=== PATIENT | male | born 1975 | race African-American/Black ===

== ENCOUNTER 2016-08-26 02:56 | Emergency (ER) | payer OTHER ==
[~2016-08-26] VITALS: Ht 175.3 cm; Wt 88.5 kg
[2016-08-26 03:03] VITALS: Ht 175.3 cm; Wt 88.5 kg
--- NOTE | 2016-08-26 05:02 | ERA ---
ER Documentation Chief Complaint Date/Time DATE: 08/26/16 TIME: 05:[address], cough, pain& burning w/ coughing x 2 days, no fevers. HPI The patient is 41 years old female, presenting with sore throat, cough, subjective fever for 3 days. He denies facial pain, neck pain, chest pain, dyspnea, abdominal pain, vomiting, dysuria, diarrhea. He does smoke and drinks socially Past medical history/surgical history: None ROS All systems reviewed and are negative except as per history of present illness. Medications Home Meds Active Scripts Guaifenesin-Codeine Phosphate* (Robitussin* AC) 5 Ml Syrup, 10 ML PO Q6H Y for COUGH, #120 ML Prov:BEAU PRAKASH MD 08/26/16 Ibuprofen* (Motrin*) 600 Mg Tab, 600 MG PO Q6H Y for PAIN AND OR ELEVATED TEMP, #20 TAB Prov:BEAU PRAKASH MD 08/26/16 Amoxicillin* (Amoxicillin*) 500 Mg Cap, 500 MG PO TID for 10 Days, CAP Prov:BEAU PRAKASH MD 08/26/16 Allergies Allergies: Coded Allergies: No Known Drug Allergies (Verified Allergy, Unknown, 08/26/16) PMhx/Soc Hx Alcohol Use: No Hx Substance Use: No Hx Tobacco Use: No Physical Exam Vitals Vital Signs Date Time Temp Pulse Resp B/P Pulse Ox O2 Delivery O2 Flow Rate FiO2 08/26/16 03:03 97.8 70 20 131/83 96 Physical Exam Const: No acute distress. Head: Atraumatic. Eyes: Normal Conjunctiva. ENT: Normal External Ears, Nose and Mouth. Bilateral tympanic membranes are within normal limits, tonsils are edematous and erythematous Neck: Full range of motion. No meningismus. Resp: Clear to auscultation bilaterally. Cardio: Regular rate and rhythm, no murmurs. Abd: Soft, non distended, normal bowel sounds, non tender. Skin: No petechiae or rashes. Back: No midline or flank tenderness. Ext: No cyanosis, or edema. Neur: Awake and alert. No focal deficit Psych: Normal Mood and Affect. Procedures/MDM MEDICAL MAKING DECISION: The patient is a 41-year-old female, presenting with acute tonsillitis. The differential diagnoses considered include but are not limited to pharyngitis, bronchitis, pneumonia, otitis media, influenza Departure Diagnosis: Primary Impression: Acute tonsillitis Condition: Good Comments I discussed the findings with the patient. I advised the patient to follow-up with the primary physician in about 1-2 days, sooner if needed and return if any concern. He was discharged with Phenergan with codeine, amoxicillin, Motrin The patient's blood pressure was elevated (>120/80) but appears stable without evidence of hypertension emergency or urgency. The patient was counseled about the risks of hypertension and urged to pursue outpatient monitoring and therapy within a week with their primary care physician. BEAU PRAKASH MD Aug 26, 2016 05:02
[2016-08-26] MEDS ORDERED: IBUP-1542 PO (05:06)
[2016-08-26] MEDS ORDERED: AMO500 PO (05:06)
[2016-08-26] MEDS ORDERED: UDROBAC PO (05:08)
== END 2016-08-26 05:23 | disposition home or self-care (01) ==
LOC: E/R 02:56
DX: J03.90 Acute tonsillitis, unspecified (principal)
CPT/HCPCS: 99283